=== PATIENT | female | born 1960 | race Caucasian/White ===

== ENCOUNTER 2021-09-20 07:19 | Day surgery (SDC) | payer MEDICARE | END 2021-09-20 23:43 | disposition home or self-care (01) | LOC: WOUND 07:19 | DX: E11.622 Type 2 diabetes mellitus with other skin ulcer (principal); L97.822 Non-pressure chronic ulcer of other part of left lower leg with fat layer exposed; E11.42 Type 2 diabetes mellitus with diabetic polyneuropathy; E11.51 Type 2 diabetes mellitus with diabetic peripheral angiopathy without gangrene; I87.2 Venous insufficiency (chronic) (peripheral); I12.0 Hypertensive chronic kidney disease with stage 5 chronic kidney disease or end stage renal disease; E11.22 Type 2 diabetes mellitus with diabetic chronic kidney disease; N18.6 End stage renal disease; E78.5 Hyperlipidemia, unspecified; G47.33 Obstructive sleep apnea (adult) (pediatric); E03.9 Hypothyroidism, unspecified; E11.43 Type 2 diabetes mellitus with diabetic autonomic (poly)neuropathy; K31.84 Gastroparesis; Z99.2 Dependence on renal dialysis; Z88.0 Allergy status to penicillin; Z88.8 Allergy status to other drugs, medicaments and biological substances; Z85.528 Personal history of other malignant neoplasm of kidney; Z85.42 Personal history of malignant neoplasm of other parts of uterus | CPT/HCPCS: G0463 ==

== ENCOUNTER 2021-09-27 05:08 | Day surgery (SDC) | payer MEDICARE | END 2021-09-27 23:28 | disposition home or self-care (01) | LOC: WOUND 05:08 | DX: T81.33XA Disruption of traumatic injury wound repair, initial encounter (principal); Y83.9 Surgical procedure, unspecified as the cause of abnormal reaction of the patient, or of later complication, without mention of misadventure at the time of the procedure; E11.22 Type 2 diabetes mellitus with diabetic chronic kidney disease; I12.0 Hypertensive chronic kidney disease with stage 5 chronic kidney disease or end stage renal disease; N18.6 End stage renal disease; Z99.2 Dependence on renal dialysis; E11.42 Type 2 diabetes mellitus with diabetic polyneuropathy; E11.51 Type 2 diabetes mellitus with diabetic peripheral angiopathy without gangrene | CPT/HCPCS: G0463 ==

== ENCOUNTER 2021-10-11 01:27 | Day surgery (SDC) | payer MEDICARE | END 2021-10-11 23:47 | disposition home or self-care (01) | LOC: WOUND 01:27 | DX: T81.31XD Disruption of external operation (surgical) wound, not elsewhere classified, subsequent encounter (principal); I12.0 Hypertensive chronic kidney disease with stage 5 chronic kidney disease or end stage renal disease; E11.22 Type 2 diabetes mellitus with diabetic chronic kidney disease; N18.6 End stage renal disease; Z99.2 Dependence on renal dialysis; E11.51 Type 2 diabetes mellitus with diabetic peripheral angiopathy without gangrene; I87.2 Venous insufficiency (chronic) (peripheral) | CPT/HCPCS: G0463 ==

== ENCOUNTER 2021-11-17 21:35 | Emergency (ER) | payer MEDICARE ==
[~2021-11-17] VITALS: Ht 170.2 cm; Wt 149.0 kg
[2021-11-18] MEDS ORDERED: Norco 5-325 Ta1 EACH PO (00:08)
[2021-11-18] MEDS ORDERED: ONDA4ODT MM (01:24)
== END 2021-11-18 01:22 | disposition home or self-care (01) ==
LOC: ER 21:35
DX: S82.121A Displaced fracture of lateral condyle of right tibia, initial encounter for closed fracture (principal); M25.551 Pain in right hip; M25.571 Pain in right ankle and joints of right foot; W17.89XA Other fall from one level to another, initial encounter; I10 Essential (primary) hypertension; E11.40 Type 2 diabetes mellitus with diabetic neuropathy, unspecified; Z88.0 Allergy status to penicillin; Z88.5 Allergy status to narcotic agent; Z88.8 Allergy status to other drugs, medicaments and biological substances
CPT/HCPCS: 73502; 73562-RT; 73610; 99284-25; A9270

== ENCOUNTER 2021-11-18 13:18 | Emergency (ER) | payer MEDICARE ==
[~2021-11-18] VITALS: Ht 170.2 cm; Wt 149.0 kg
[~2021-11-18 13:18] MED LIST: Norco 5-325 Ta1 EACH PO; ONDA4ODT MM
== END 2021-11-18 17:02 | disposition home or self-care (01) ==
LOC: ER 13:18
DX: S82.124A Nondisplaced fracture of lateral condyle of right tibia, initial encounter for closed fracture (principal); W17.89XA Other fall from one level to another, initial encounter; I10 Essential (primary) hypertension; E11.40 Type 2 diabetes mellitus with diabetic neuropathy, unspecified; Z88.0 Allergy status to penicillin; Z88.5 Allergy status to narcotic agent; Z88.8 Allergy status to other drugs, medicaments and biological substances; Z79.899 Other long term (current) drug therapy
CPT/HCPCS: 73630; 73700; A9270

== ENCOUNTER 2021-12-08 19:08 | Emergency (ER) | payer MEDICARE ==
[~2021-12-08] VITALS: Ht 170.2 cm; Wt 145.0 kg
[~2021-12-08 19:08] MED LIST changes: +AMLODIPINE BES2.5 MG PO; +ASPI81CH PO; +CALCITRIOL0.5 MC1 PO; +CARVEDILOL3.125 MG PO; +CINACALCET HCL30 M1 PO; +DOXY100 PO; +ESCI20 PO; +EUTHYROX150 MC1 PO; +FAMO20 PO; +GABA100 PO; +HEPARIN IV; +HYDROCODONE-AC1 EA18 PO; +LIPITOR80 MG PO; +METOPROLOL SUCC25 MG PO; +NOVOLIN R100 UNIT/2 SC; +RENVELA800 MG PO; +SPIRONOLACTONE25 MG PO; +SULFAMETHOXAZO1 EACH PO; +VISBIOME 112.51 EACH PO; +Zofran4 MG PO
[2021-12-08 23:10] LABS: BASOPHILS ABSOLUTE AUTO 0.05 K/mm3 (0.00-0.23); BASOPHILS PERCENT AUTO 0 % (0-2); EOSINOPHILS ABSOLUTE AUTO 0.13 K/mm3 (0.00-0.68); EOSINOPHILS PERCENT AUTO 1 % (0-6); Hemoglobin 8.4 g/dL (11.5-16.0); IMMATURE GRAN ABSOLUTE AUTO 0.03 K/mm3 (0.00-0.10); IMMATURE GRAN PERCENT AUTO 0 % (0-1); LYMPHOCYTES ABSOLUTE AUTO 1.13 K/mm3 (0.84-5.20); LYMPHOCYTES PERCENT AUTO 10 % (21-46); MONOCYTES ABSOLUTE AUTO 0.74 K/mm3 (0.16-1.47); MONOCYTES PERCENT AUTO 6 % (4-13); Mean Corpuscular HGB 32.1 pg (26.0-34.0); Mean Corpuscular HGB Conc 32.3 g/dL (31.5-36.5); Mean Corpuscular Volume 99 fL (80-100); Mean Platelet Volume 10.6 fL (9.1-12.4); NEUTROPHILS ABSOLUTE AUTO 9.58 K/mm3 (1.96-9.15); NEUTROPHILS PERCENT AUTO 82 % (41-73); Platelet Count 258 K/mm3 (150-400); RDW Coefficient Variation 12.7 % (11.7-14.2); RDW Standard Deviation 45.3 fL (35.1-46.3); Red Blood Cell Count 2.62 M/mm3 (3.80-5.20); White Blood Cell Count 11.66 K/mm3 (4.00-11.30)
[2021-12-08 23:30] LABS: Albumin, Blood 2.7 g/dL (3.4-5.0); Albumin/Globulin Ratio 0.7 (0.8-1.8); Bilirubin, Total 0.5 mg/dL (0.1-1.0); Bun/Creatinine Ratio 3.8 (12.0-20.0); Calcium, Blood 9.4 mg/dL (8.5-10.1); Creatinine, Blood 5.47 mg/dL (0.40-1.00); Potassium, Blood 2.9 mmol/L (3.5-5.5); Total Protein, Blood 6.7 g/dL (6.4-8.2)
[2021-12-09] MEDS ORDERED: ONDA4ODT MM (03:21)
[2021-12-09 03:42] LABS: Influenza A, PCR NEGATIVE (NEGATIVE); Influenza B, PCR NEGATIVE (NEGATIVE); Resp Syncytial Virus, PCR NEGATIVE (NEGATIVE); SARS-Cov-2 (COVID-19) PCR, MMC NEGATIVE (NEGATIVE)
== END 2021-12-09 03:40 | disposition home or self-care (01) ==
LOC: ER 19:08
PROVIDERS: Physician Assistant; Student in an Organized Health Care Education/Training Program
DX: R06.02 Shortness of breath (principal); R11.2 Nausea with vomiting, unspecified; I12.0 Hypertensive chronic kidney disease with stage 5 chronic kidney disease or end stage renal disease; E11.22 Type 2 diabetes mellitus with diabetic chronic kidney disease; N18.6 End stage renal disease; Z79.890 Hormone replacement therapy; Z79.899 Other long term (current) drug therapy; Z79.82 Long term (current) use of aspirin; Z88.0 Allergy status to penicillin; Z88.5 Allergy status to narcotic agent; Z88.8 Allergy status to other drugs, medicaments and biological substances; Z86.73 Personal history of transient ischemic attack (TIA), and cerebral infarction without residual deficits; Z99.2 Dependence on renal dialysis
CPT/HCPCS: 0241U; 36415; 71046; 80053; 84484; 85025; 93005; 93010; 96374; 99285-25; A9270; J2405

== ENCOUNTER 2022-08-22 14:30 | Emergency (ER) | payer MEDICARE ==
[~2022-08-22] VITALS: Ht 170.2 cm; Wt 151.0 kg
[2022-08-22 15:29] LABS: BASOPHILS ABSOLUTE AUTO 0.07 K/mm3 (0.00-0.23); BASOPHILS PERCENT AUTO 0 % (0-2); EOSINOPHILS ABSOLUTE AUTO 0.13 K/mm3 (0.00-0.68); EOSINOPHILS PERCENT AUTO 1 % (0-6); Hematocrit 40.6 % (33.0-51.0); Hemoglobin 13.7 g/dL (11.5-16.0); IMMATURE GRAN ABSOLUTE AUTO 0.08 K/mm3 (0.00-0.10); IMMATURE GRAN PERCENT AUTO 0 % (0-1); LYMPHOCYTES ABSOLUTE AUTO 1.13 K/mm3 (0.84-5.20); LYMPHOCYTES PERCENT AUTO 6 % (21-46); MONOCYTES ABSOLUTE AUTO 0.96 K/mm3 (0.16-1.47); MONOCYTES PERCENT AUTO 5 % (4-13); Mean Corpuscular HGB 31.8 pg (26.0-34.0); Mean Corpuscular HGB Conc 33.7 g/dL (31.5-36.5); Mean Corpuscular Volume 94 fL (80-100); Mean Platelet Volume 12.1 fL (9.1-12.4); NEUTROPHILS ABSOLUTE AUTO 16.44 K/mm3 (1.96-9.15); NEUTROPHILS PERCENT AUTO 87 % (41-73); Platelet Count 200 K/mm3 (150-400); RDW Coefficient Variation 14.6 % (11.7-14.2); RDW Standard Deviation 48.9 fL (35.1-46.3); Red Blood Cell Count 4.31 M/mm3 (3.80-5.20); White Blood Cell Count 18.81 K/mm3 (4.00-11.30)
[2022-08-22] MEDS ORDERED: LOSARTAN POTASS25 M2 PO (16:34)
[2022-08-22 16:45] LABS: Albumin, Blood 4.1 g/dL (3.4-5.0); Bilirubin, Total 0.7 mg/dL (0.1-1.0); Bun/Creatinine Ratio 9.4 (12.0-20.0); Calcium, Blood 11.5 mg/dL (8.5-10.1); Globulin, Blood 4.3 g/dL (2.2-4.0); Potassium, Blood 4.6 mmol/L (3.5-5.5); Total Protein, Blood 8.4 g/dL (6.4-8.2)
[2022-08-22 20:45] VITALS: BP 121/58
== END 2022-08-22 20:45 | disposition home or self-care (01) ==
LOC: ER 14:30
PROVIDERS: Emergency Medicine
DX: K52.9 Noninfective gastroenteritis and colitis, unspecified (principal); Z88.0 Allergy status to penicillin; Z88.5 Allergy status to narcotic agent; Z88.8 Allergy status to other drugs, medicaments and biological substances; Z79.899 Other long term (current) drug therapy; Z79.82 Long term (current) use of aspirin
CPT/HCPCS: 74176; 80053; 83690; 85025; 96360; 99284-25; J7030

== ENCOUNTER → 2022-09-02 | Outpatient (CLI) | payer MEDICARE ==
[~2022-09-02] MED LIST changes: +LOSARTAN POTASS25 M2 PO
== END ==
LOC: LAB SHORT 05:40 → LAB 05:40
DX: K52.9 Noninfective gastroenteritis and colitis, unspecified (principal)
CPT/HCPCS: 82653

== ENCOUNTER 2023-01-06 18:46 | Emergency (ER) | payer MEDICARE ==
[~2023-01-06] VITALS: Ht 170.2 cm; Wt 153.7 kg
[2023-01-06 19:42] VITALS: BP 182/61
[2023-01-06 20:43] LABS: Influenza A, PCR NEGATIVE (NEGATIVE); Influenza B, PCR NEGATIVE (NEGATIVE); Resp Syncytial Virus, PCR NEGATIVE (NEGATIVE); SARS-Cov-2 (COVID-19) PCR, MMC NEGATIVE (NEGATIVE)
[2023-01-06] MEDS ORDERED: BENZ100A PO (20:48)
== END 2023-01-06 20:57 | disposition home or self-care (01) ==
LOC: ER 18:46
PROVIDERS: Emergency Medicine
DX: R05.3 Chronic cough (principal); E11.22 Type 2 diabetes mellitus with diabetic chronic kidney disease; I12.9 Hypertensive chronic kidney disease with stage 1 through stage 4 chronic kidney disease, or unspecified chronic kidney disease; N18.9 Chronic kidney disease, unspecified; Z88.0 Allergy status to penicillin; Z88.8 Allergy status to other drugs, medicaments and biological substances; Z88.5 Allergy status to narcotic agent; Z79.890 Hormone replacement therapy; Z79.899 Other long term (current) drug therapy; Z79.82 Long term (current) use of aspirin; Z86.73 Personal history of transient ischemic attack (TIA), and cerebral infarction without residual deficits; Z99.2 Dependence on renal dialysis; Z20.822 Contact with and (suspected) exposure to COVID-19
CPT/HCPCS: 0241U; 71046; 99283-25; A9270

== ENCOUNTER 2023-02-23 12:17 | Emergency (ER) | payer MEDICARE ==
[~2023-02-23] VITALS: Ht 152.4 cm; Wt 149.7 kg
[~2023-02-23 12:17] MED LIST changes: +BENZ100A PO
[2023-02-23 13:25] LABS: BASOPHILS ABSOLUTE AUTO 0.03 K/mm3 (0.00-0.23); BASOPHILS PERCENT AUTO 0 % (0-2); EOSINOPHILS ABSOLUTE AUTO 0.09 K/mm3 (0.00-0.68); EOSINOPHILS PERCENT AUTO 1 % (0-6); Hematocrit 34.8 % (33.0-51.0); IMMATURE GRAN ABSOLUTE AUTO 0.03 K/mm3 (0.00-0.10); IMMATURE GRAN PERCENT AUTO 0 % (0-1); LYMPHOCYTES ABSOLUTE AUTO 0.81 K/mm3 (0.84-5.20); LYMPHOCYTES PERCENT AUTO 9 % (21-46); MONOCYTES ABSOLUTE AUTO 0.58 K/mm3 (0.16-1.47); MONOCYTES PERCENT AUTO 6 % (4-13); Mean Corpuscular HGB 32.7 pg (26.0-34.0); Mean Corpuscular HGB Conc 34.5 g/dL (31.5-36.5); Mean Corpuscular Volume 95 fL (80-100); Mean Platelet Volume 11.8 fL (9.1-12.4); NEUTROPHILS ABSOLUTE AUTO 7.54 K/mm3 (1.96-9.15); NEUTROPHILS PERCENT AUTO 83 % (41-73); Platelet Count 186 K/mm3 (150-400); RDW Coefficient Variation 12.1 % (11.7-14.2); RDW Standard Deviation 42.6 fL (35.1-46.3); Red Blood Cell Count 3.67 M/mm3 (3.80-5.20); White Blood Cell Count 9.08 K/mm3 (4.00-11.30)
[2023-02-23 13:50] LABS: Albumin/Globulin Ratio 1.1 (0.8-1.8); Bilirubin, Total 0.7 mg/dL (0.1-1.0); Bun/Creatinine Ratio 3.7 (12.0-20.0); Calcium, Blood 10.2 mg/dL (8.5-10.1); Creatinine, Blood 6.25 mg/dL (0.40-1.00); Globulin, Blood 3.7 g/dL (2.2-4.0); Potassium, Blood 3.4 mmol/L (3.5-5.5); Total Protein, Blood 7.7 g/dL (6.4-8.2)
[2023-02-23 16:00] VITALS: BP 195/50
[2023-02-23] MEDS ORDERED: ONDA4ODT MM (16:09)
[2023-02-23] MEDS ORDERED: METO10 PO (16:09)
== END 2023-02-23 16:17 | disposition home or self-care (01) ==
LOC: ER 12:17
PROVIDERS: Physician Assistant
DX: R11.2 Nausea with vomiting, unspecified (principal); I12.0 Hypertensive chronic kidney disease with stage 5 chronic kidney disease or end stage renal disease; N18.6 End stage renal disease; E11.22 Type 2 diabetes mellitus with diabetic chronic kidney disease; Z99.2 Dependence on renal dialysis; E11.40 Type 2 diabetes mellitus with diabetic neuropathy, unspecified; Z79.82 Long term (current) use of aspirin; Z79.899 Other long term (current) drug therapy; Z88.0 Allergy status to penicillin; Z88.1 Allergy status to other antibiotic agents; Z88.2 Allergy status to sulfonamides; Z88.5 Allergy status to narcotic agent; Z88.8 Allergy status to other drugs, medicaments and biological substances; I27.20 Pulmonary hypertension, unspecified; I08.2 Rheumatic disorders of both aortic and tricuspid valves
CPT/HCPCS: 80053; 83690; 85025; 96361; 96374; 96375; 99284-25; C8929; J2405; J2765; J7030; Q9957

== ENCOUNTER 2023-06-16 07:46 | Day surgery (SDC) | payer MEDICARE ==
[~2023-06-16] VITALS: Ht 167.6 cm; Wt 158.1 kg
[~2023-06-16 07:46] MED LIST changes: +Lactated Ringer's 1,000 ML IV SCH; +METO10 PO
[2023-06-16] MEDS ORDERED: propofoL 40 ML IV ONE (08:19)
[2023-06-16] MEDS ORDERED: AMLO5 PO (08:25)
[2023-06-16] MEDS ORDERED: SEVEC800 PO (08:28)
[2023-06-16] MEDS ORDERED: NOVOLIN 70100 UNIT/4 SQ (08:30)
[2023-06-16] MEDS ORDERED: NS 1,000 ML IV SCH (08:40)
[2023-06-16 08:42] VITALS: BP 178/63
--- NOTE | 2023-06-16 09:00 | NUR ---
PT TO [facility] VIA PERSONAL SCOOTER WHEELCHAIR. PT ABLE TO STAND FOR HEIGHT/WEIGHT ON SCALE, BUT USES SCOOTER FOR LONGER DISTANCES. History, Chart, Medications and Allergies reviewed before start of procedure. Lungs clear T/O to Auscultation. Patient confirms NPO status and agrees with scheduled surgery. Pre-Op teaching done. Pt verbalizes understanding. Patient States Post-Procedure ride home has been arranged. PT PERSONAL SCOOTER PLACED IN ENDO 2 ROOM FOR SAFEKEEPING.
[2023-06-16] MEDS ORDERED: NS 500 ML IV SCH (09:15)
--- NOTE | 2023-06-16 09:19 | NUR ---
06/16/23 0919 Holli Smart MONITOR INTACT WITH CONTINUOUS PULSE OXIMETRY, CONTINUOUS END TITAL CO2, AND INTERMITTENT BLOOD PRESSURE.
[2023-06-16 09:51] VITALS: BP 125/53
--- NOTE | 2023-06-16 09:51 | NUR ---
PT TO DAY SURGERY STEP DOWN FROM COLONOSCOPY. BEDSIDE REPORT RECEIVED. PT IS AWAKE, ALERT AND ORIENTED; ABLE TO MOVE SELF IN BED. VSS. PT HAS NO COMPLAINTS AT THIS TIME.
--- NOTE | 2023-06-16 09:59 | NUR ---
Discharge instructions reviewed with patient. Patient verbalizes understanding. Copy given to patient to take home.
[2023-06-16 10:01] VITALS: BP 115/43
--- NOTE | 2023-06-16 10:10 | NUR ---
Patient up to Ambulate independently. PT HAS OWN WC, UP TO WC
--- NOTE | 2023-06-16 10:14 | NUR ---
Patient States Post-Procedure ride home has been arranged. Discharged via OWN wheelchair to private car for ride home.
== END 2023-06-16 10:16 | disposition home or self-care (01) ==
LOC: ORSCMMR 07:46 → ORD 09:15 → ORSCMMR 09:15
PROVIDERS: Specialist
PROC: 0DBE8ZX Excision of Large Intestine, Via Natural or Artificial Opening Endoscopic, Diagnostic (ICD-10-PCS; principal; 2023-06-16 09:15)
PROC: 0DBN8ZX Excision of Sigmoid Colon, Via Natural or Artificial Opening Endoscopic, Diagnostic (ICD-10-PCS; principal; 2023-06-16 09:15)
DX: K52.9 Noninfective gastroenteritis and colitis, unspecified (principal); Z86.010 Personal history of colon polyps; D12.5 Benign neoplasm of sigmoid colon; K57.30 Diverticulosis of large intestine without perforation or abscess without bleeding; G47.33 Obstructive sleep apnea (adult) (pediatric); I10 Essential (primary) hypertension; E03.9 Hypothyroidism, unspecified; K21.9 Gastro-esophageal reflux disease without esophagitis; Z86.73 Personal history of transient ischemic attack (TIA), and cerebral infarction without residual deficits; Z68.43 Body mass index [BMI] 50.0-59.9, adult; Z79.82 Long term (current) use of aspirin; Z79.4 Long term (current) use of insulin; Z79.899 Other long term (current) drug therapy
CPT/HCPCS: 82947; 88305; J2704; J7030; J7040

== ENCOUNTER 2023-08-22 11:35 | Day surgery (SDC) | payer MEDICARE ==
[~2023-08-22] VITALS: Ht 170.2 cm; Wt 154.0 kg
[~2023-08-22 11:35] MED LIST changes: +AMLO5 PO; +Balanced Salt Epinephrine Irrigation Solution 500 mL IR SCH; +FAMO10 PO; +GLIMEPIRIDE4 MG PO; +LOPE2C PO; -Lactated Ringer's 1,000 ML IV SCH; +Lidocaine HCl/Pf 1% 5 ML VIAL XX SCH; +MIRCERA IJ; +Moxifloxacin HCL 0.5 MG/0.1 ML 0.4MLSYR LEFTEYE SCH; +NOVOLIN 70100 UNIT/4 SQ; +NS 500 ML IV ONE; +PHENYLEPHRINE\\TROPICAMIDE\\TETRACAINE OPHTHALMIC DILATING SOLN LEFTEYE PRN; +Povidone-Iodine 450 DROP/30 ML Solution LEFTEYE SCH; +SEVEC800 PO
[2023-08-22] MEDS ORDERED: NS 500 ML IV ONE (12:04)
[2023-08-22] MEDS ORDERED: Midazolam HCl 1MG / ML 2ML Vial ONE (12:49)
[2023-08-22] MEDS ORDERED: FentaNYL Citrate 50 MCG/ML 2 ML Injection ONE (12:49)
[2023-08-22] MEDS ORDERED: Tetracaine HCl 0.5% Opth Soln 15 ml LEFTEYE ONE (13:06)
[2023-08-22 13:41] VITALS: BP 173/67
== END 2023-08-22 13:52 | disposition home or self-care (01) ==
LOC: ORSCSDS 11:35
PROVIDERS: Student in an Organized Health Care Education/Training Program
PROC: 08RK3JZ Replacement of Left Lens with Synthetic Substitute, Percutaneous Approach (ICD-10-PCS; principal; 2023-08-22 13:00)
DX: E11.36 Type 2 diabetes mellitus with diabetic cataract (principal); H25.812 Combined forms of age-related cataract, left eye; H21.81 Floppy iris syndrome; Z96.1 Presence of intraocular lens; E11.22 Type 2 diabetes mellitus with diabetic chronic kidney disease; I12.0 Hypertensive chronic kidney disease with stage 5 chronic kidney disease or end stage renal disease; N18.6 End stage renal disease; E11.319 Type 2 diabetes mellitus with unspecified diabetic retinopathy without macular edema; E66.9 Obesity, unspecified; Z68.43 Body mass index [BMI] 50.0-59.9, adult; Z79.899 Other long term (current) drug therapy
CPT/HCPCS: 82947; J2250; J3010; J7040; V2632

== ENCOUNTER → 2023-12-05 | Outpatient (CLI) | payer MEDICARE ==
[~2023-12-05] MED LIST changes: -Balanced Salt Epinephrine Irrigation Solution 500 mL IR SCH; -Lidocaine HCl/Pf 1% 5 ML VIAL XX SCH; -Moxifloxacin HCL 0.5 MG/0.1 ML 0.4MLSYR LEFTEYE SCH; -NS 500 ML IV ONE; -PHENYLEPHRINE\\TROPICAMIDE\\TETRACAINE OPHTHALMIC DILATING SOLN LEFTEYE PRN; -Povidone-Iodine 450 DROP/30 ML Solution LEFTEYE SCH
== END | disposition home or self-care (01) ==
LOC: LAB 17:30 → LAB SHORT 17:30
DX: E11.3293 Type 2 diabetes mellitus with mild nonproliferative diabetic retinopathy without macular edema, bilateral (principal)
CPT/HCPCS: 83036

== ENCOUNTER 2024-12-15 15:25 | Observation (INO) | payer MEDICARE ==
[~2024-12-15] VITALS: Ht 170.2 cm; Wt 163.3 kg
[2024-12-15] VITALS (12 sets, daily range): BP systolic 117–175; BP diastolic 42–74
[~2024-12-15 15:25] MED LIST changes: +ONDA4 PO; +Percocet 5-3251 EACH PO
[2024-12-15 16:04] LABS: BASOPHILS ABSOLUTE AUTO 0.05 K/mm3 (0.00-0.23); BASOPHILS PERCENT AUTO 1 % (0-2); EOSINOPHILS ABSOLUTE AUTO 0.17 K/mm3 (0.00-0.68); EOSINOPHILS PERCENT AUTO 2 % (0-6); Hematocrit 33.3 % (33.0-51.0); Hemoglobin 10.8 g/dL (11.5-16.0); IMMATURE GRAN ABSOLUTE AUTO 0.02 K/mm3 (0.00-0.10); IMMATURE GRAN PERCENT AUTO 0 % (0-1); LYMPHOCYTES ABSOLUTE AUTO 0.91 K/mm3 (0.84-5.20); LYMPHOCYTES PERCENT AUTO 10 % (21-46); MONOCYTES ABSOLUTE AUTO 0.54 K/mm3 (0.16-1.47); MONOCYTES PERCENT AUTO 6 % (4-13); Mean Corpuscular HGB Conc 32.4 g/dL (31.5-36.5); Mean Corpuscular Volume 100 fL (80-100); NEUTROPHILS ABSOLUTE AUTO 7.73 K/mm3 (1.96-9.15); NEUTROPHILS PERCENT AUTO 82 % (41-73); NRBC ABSOLUTE 0.00 K/mm3 (0.00-0.02); NRBC Auto 0.0 /100 WBC (0.0-0.2); Platelet Count 151 K/mm3 (150-400); RDW Coefficient Variation 12.7 % (11.7-14.2); RDW Standard Deviation 46.3 fL (35.1-46.3)
[2024-12-15 16:36] LABS: Alanine Aminotransfer (ALT/SGP 26.0 U/L (12-78); Albumin, Blood 4.1 g/dL (3.4-5.0); Albumin/Globulin Ratio 1.2 (0.8-1.8); Anion Gap 14.0 mmol/L (3-11); Aspartate Aminotrans (AST/SGOT 14.0 U/L (12-37); Bilirubin, Total 0.5 mg/dL (0.1-1.0); Blood Urea Nitrogen 98.0 mg/dL (8-24); CO2, Blood 24.0 mmol/L (21-32); Calcium, Blood 8.6 mg/dL (8.5-10.1); Chloride, Blood 104.0 mmol/L (98-108); Creatinine, Blood 10.4 mg/dL (0.40-1.00); Globulin, Blood 3.4 g/dL (2.2-4.0); Glucose, Blood 182.0 mg/dL (70-99); Potassium, Blood 7.1 mmol/L (3.5-5.5); Sodium, Blood 135.0 mmol/L (136-145); Total Protein, Blood 7.5 g/dL (6.4-8.2)
[2024-12-15] MEDS ORDERED: Calcium Gluconate 10% 100 MG/ML INJ IV ONE (16:40)
[2024-12-15] MEDS ORDERED: Albuterol 2.5 MG/3 ML VIAL INH SCH (16:40)
[2024-12-15] MEDS ORDERED: Insulin Regular 100 Unit/ML 1ML Dose IV ONE (16:40)
[2024-12-15] MEDS ORDERED: FLU VACC TS2025-26(6MOS UP)/PF 45 MCG/0.5 ML SYRINGE IM SCH (18:05)
[2024-12-15] MEDS ORDERED: OxyCODONE 5 mg/Acetamin 325 mg TABLET PO PRN (18:10)
[2024-12-15] MEDS ORDERED: Darbepoetin (Pharmacy Consult) SC SCH (18:40)
[2024-12-15] MEDS ORDERED: PANTOPRAZOLE SO40 M2 PO (18:44)
[2024-12-15] MEDS ORDERED: Insulin Human Lispro 100 Units/ML 3ML Syringe SC SCH (21:00)
[2024-12-15] MEDS ORDERED: Heparin Sodium,Porcine 5,000 UNIT/0.5 ML SDV SC SCH (21:00)
[2024-12-15] MEDS ORDERED: LOSA25 PO (22:01)
[2024-12-15] MEDS ORDERED: NOVOLIN N100 UNIT/2 (22:05)
[2024-12-16] VITALS (14 sets, daily range): BP systolic 156–193; BP diastolic 57–127
[2024-12-16 04:11] LABS: Hematocrit 28.4 % (33.0-51.0); Hemoglobin 9.1 g/dL (11.5-16.0); Mean Corpuscular HGB Conc 32.0 g/dL (31.5-36.5); Mean Corpuscular Volume 101 fL (80-100); NRBC ABSOLUTE 0.00 K/mm3 (0.00-0.02); NRBC Auto 0.0 /100 WBC (0.0-0.2); Platelet Count 137 K/mm3 (150-400); RDW Coefficient Variation 12.8 % (11.7-14.2); RDW Standard Deviation 47.2 fL (35.1-46.3)
[2024-12-16 04:44] LABS: Magnesium, Blood 1.9 mg/dL (1.6-2.4)
[2024-12-16 04:48] LABS: Albumin, Blood 3.4 g/dL (3.4-5.0); Anion Gap 13 mmol/L (3-11); Blood Urea Nitrogen 72 mg/dL (8-24); CO2, Blood 26 mmol/L (21-32); Calcium, Blood 8.6 mg/dL (8.5-10.1); Chloride, Blood 103 mmol/L (98-108); Creatinine, Blood 7.84 mg/dL (0.40-1.00); Glucose, Blood 185 mg/dL (70-99); Phosphorus, Blood 5.4 mg/dL (2.5-4.9); Sodium, Blood 137 mmol/L (136-145)
[2024-12-16 04:51] LABS: Potassium, Blood 4.8 mmol/L (3.5-5.5)
[2024-12-16 05:19] LABS: Source, Urine Clean Catch
[2024-12-16 05:27] LABS: Bilirubin, Urine Neg (Neg); Glucose Qualitative, Urine Neg (Neg); Ketones, Urine Neg (Neg); Leukocyte Esterase, Urine 3+ (Neg); Protein, Urine 4+ (Neg); Specific Gravity, Urine 1.015 (1.003-1.022); Urobilinogen, Urine NORM (Normal)
[2024-12-16 05:28] LABS: Color, Urine Pale Yellow (P-Yellow)
[2024-12-16 05:51] LABS: White Blood Cells, Urine TNTC /hpf (0-5)
--- NOTE | 2024-12-16 06:34 | NUR ---
PT ARRIVED TO THE FLOOR FROM DIALYSIS VIA STRETCHER. PT ALERT AND ORIENTED X 4. PT ABLE TO STAND AND PIVOT TO [facility] [place] WITH 1 PERSON ASSISTANCE. PT STATES SHE USES A MOTORIZED SCOOTER AT BASELINE. PT ALSO USES A CPAP AT HOME. RT PLACED CPAP ON PT PER REQUEST WHEN SHE WAS READY TO SLEEP. 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 PT HAD SEVERE LEG CRAMPS WHICH PROMPTED THE VISIT TO THE HOSPITAL. PT STATES AFTER DIALYSIS, LEG CRAMPS HAVE SUBSIDED. BED LOCKED IN LOWEST POSITION. CALL LIGHT WITHIN REACH.
[2024-12-16] MEDS ORDERED: Calcium Acetate 667 MG Gel Cap PO SCH (08:30)
[2024-12-16] MEDS ORDERED: Vitamin B Cmplx/Vit C/Folic Ac 1 Tab PO SCH (09:00)
--- NOTE | 2024-12-16 11:15 | NUR ---
MORNING NOTE PT IS A&O X4, COOPERATIVE WITH CARE, AND ABLE TO EXPRESS NEEDS. PT UP TO CHAIR W/ 1 ASST. SATTING OVER 93% ON RA W/ NO COMPLAINTS OF SOB. PT IN SR 70s W/ ELEVATED BUT STABLE BPs, MAP OVER 65 THIS MORNING. PT WENT TO DIALYSIS AROUND 0830 AND RETURNED WITH ABOUT 2L REMOVED. POST-DIALYSIS, BPs HAVE IMPROVED TO 150s SYSTOLIC, MAPS STILL OVER 65. PT HAS BEEN ADVANCED TO MED STATUS WITH NO TELE THIS AM PER ORDERS. SHE HAS RECIEVED NOTIFICATION THAT THE DIALYSIS PART SHE NEEDS DELIVERED TO FIX HER HOME DIALYSIS SET UP WILL BE DELIVERED BY 1200 TOMORROW. ADOBE MAKER NOTIFIED.
[2024-12-16] MEDS ORDERED: CINA30 PO (12:46)
--- NOTE | 2024-12-16 14:30 | NUR ---
DISCHARGE SUMMARY THIS RN REVIEWED DISCHARGE INSTRUCTIONS WITH PATIENT. PT VERBALIZED UNDERSTANDING OF INFORMATION AND DID NOT HAVE QUESTIONS UPON BEING ASKED. BROUGHT STREET CLOTHES FOR PT TO CHANGE INTO. PERSONAL BELONGINGS GATHERED IN A BELONGINGS BAG AND IN PATIENT POSSESSION. IVs REMOVED. PT WHEELED TO PARKING LOT IN A WHEELCHAIR BY OPTOMETRIC COORDINATOR TO BE DRIVEN HOME BY HER . NO FURTHER NOTES.
[2024-12-16] MEDS ORDERED: Darbepoetin Alfa In Albumn Sol 60 MCG/0.3 ML Syringe SC ONE (16:00)
== END 2024-12-16 14:46 | disposition home or self-care (01) ==
LOC: ER 15:25 → PCU 15:26 → ER 18:55 → PCU 21:56
PROVIDERS: Nurse Practitioner Acute Care; Student in an Organized Health Care Education/Training Program; ADMIT Internal Medicine
DX: E11.22 Type 2 diabetes mellitus with diabetic chronic kidney disease (principal); I12.0 Hypertensive chronic kidney disease with stage 5 chronic kidney disease or end stage renal disease; E87.5 Hyperkalemia; N18.6 End stage renal disease; Z99.2 Dependence on renal dialysis; E03.9 Hypothyroidism, unspecified; E78.5 Hyperlipidemia, unspecified; K21.9 Gastro-esophageal reflux disease without esophagitis; E87.70 Fluid overload, unspecified; Z88.2 Allergy status to sulfonamides; Z88.0 Allergy status to penicillin; Z88.5 Allergy status to narcotic agent; Z88.8 Allergy status to other drugs, medicaments and biological substances
CPT/HCPCS: 36415; 80053; 80069; 81001; 82947; 83735; 85025; 85027; 87077; 87086; 87186; 93005; 93010; 94660; 94760; 94762; 96374; 96375; 99285-25; A9270; G0257; G0378; J0612; J1644; J1815; J1938